=== PATIENT | male | born 1965 | race Caucasian/White ===

== ENCOUNTER 2022-06-10 07:46 | Outpatient (REF) | payer OTHER, SELFPAY ==
--- NOTE | ~2022-06-10 | XR_ITS ---
EXAMINATION: KNEE X-RAY CLINICAL INFORMATION: Pain COMPARISON: None TECHNIQUE: 3 views of both knees and lateral and sunrise view of the right knee FINDINGS: Right: Bone alignment is normal. No fracture or dislocation is seen. There is arthritis at the lateral femoral tibial and patellofemoral joints. There is a large joint effusion. There is evidence of atherosclerotic disease. Standing AP view of the left knee is unremarkable. XR/XR knee standing BI IMPRESSION: Right knee arthritis large joint effusion.
--- NOTE | ~2022-06-10 | XR_ITS ---
EXAMINATION: KNEE X-RAY CLINICAL INFORMATION: Pain COMPARISON: None TECHNIQUE: 3 views of both knees and lateral and sunrise view of the right knee FINDINGS: Right: Bone alignment is normal. No fracture or dislocation is seen. There is arthritis at the lateral femoral tibial and patellofemoral joints. There is a large joint effusion. There is evidence of atherosclerotic disease. Standing AP view of the left knee is unremarkable. XR/XR knee RT 2V IMPRESSION: Right knee arthritis large joint effusion.
== END 2022-06-10 07:47 | disposition home or self-care (01) ==
LOC: HO.HOSX 07:46
PROVIDERS: Visit Provider Physician Assistant
DX: M17.11 Unilateral primary osteoarthritis, right knee (principal)
CPT/HCPCS: 20610; 73560; 73565; 99202; J1040

== ENCOUNTER → 2022-07-15 09:43 | Outpatient (BNVA) | payer OTHER, SELFPAY | PROVIDERS: PCP Internal Medicine; Visit Provider Physician Assistant | DX: M17.11 Unilateral primary osteoarthritis, right knee (principal) | CPT/HCPCS: 99212 ==

== ENCOUNTER → 2022-08-01 12:45 | Outpatient (BNVA) | payer OTHER, SELFPAY | PROVIDERS: PCP Internal Medicine; Visit Provider Orthopaedic Surgery | DX: M17.11 Unilateral primary osteoarthritis, right knee (principal); M25.561 Pain in right knee; I10 Essential (primary) hypertension; E78.00 Pure hypercholesterolemia, unspecified; F17.210 Nicotine dependence, cigarettes, uncomplicated | CPT/HCPCS: 99212 ==

== ENCOUNTER 2022-10-19 13:37 | Outpatient (REF) | payer OTHER, SELFPAY ==
--- NOTE | 2022-10-19 14:25 | ECG_ITS ---
Test Reason : Z01.810 Pre Op Blood Pressure : / mmHG Vent. Rate : 079 BPM Atrial Rate : 079 BPM P-R Int : 150 ms QRS Dur : 084 ms QT Int : 362 ms P-R-T Axes : 059 061 040 degrees QTc Int : 415 ms Normal sinus rhythm Minimal voltage criteria for LVH, may be normal variant ( Sokolow-Mustafa ) Borderline ECG No previous ECGs available Referred By: Stephan Douglass Electronically Signed By:KATIE PATIÑO
[2022-10-19 14:30] LABS: MANUAL DIFF FLAG NO
[2022-10-19 14:58] LABS: Basophils Absolute Auto 0.1 X10*3/uL (0.0-0.2); Basophils Percent Auto 1.3 % (0-2); Eosinophils Absolute Auto 0.3 X10*3/uL (0.0-0.4); Eosinophils Percent Auto 4.1 % (0-4); Hematocrit 44.3 % (42.0-52.0); Imm Gran Abs Auto 0.02 X10*3/uL (0.00-0.03); Imm Gran Pct Auto 0.3 % (0.0-0.4); Lymphocytes Absolute Auto 2.1 X10*3/uL (1.2-4.9); Lymphocytes Percent Auto 31.5 % (20-40); Mean Corpuscular HGB Conc 33.9 g/dl (31.0-36.0); Mean Corpuscular Hemoglobin 30.3 pg (27.0-33.0); Mean Corpuscular Volume 89.5 fL (80.0-98.0); Mean Platelet Volume 10.3 fL (9.4-12.4); Monocytes Absolute Auto 0.6 X10*3/uL (0.1-1.2); Monocytes Percent Auto 8.9 % (2-11); Neutrophils Absolute Auto 3.6 x10*3/uL (2.0-8.3); Neutrophils Percent Auto 53.9 % (45-73); Platelet Count 196 X10*3/uL (160-400); Red Blood Count 4.95 X10*6/uL (4.60-5.80); Red Cell Distribution Width 12.7 % (11.0-16.0); White Blood Count 6.8 X10*3/uL (4.8-10.8)
[2022-10-19 15:20] LABS: Anion Gap 11 (12-20); Blood Urea Nitrogen 12 mg/dL (9-16); Calcium 9.6 mg/dL (8.4-10.2); Carbon Dioxide 26 mmol/L (22-29); Chloride 105 mmol/L (96-108); Estimated Glomerular Filt Rate > 60; Glucose Random 104 mg/dL (60-115); Potassium 4.5 mmol/L (3.3-5.1); Sodium 137 mmol/L (135-145)
== END 2022-10-19 13:38 | disposition home or self-care (01) ==
LOC: HO.LAB 13:37
PROVIDERS: PCP Internal Medicine; Visit Provider Orthopaedic Surgery
DX: Z01.818 Encounter for other preprocedural examination (principal)
CPT/HCPCS: 36415; 80048; 85025; 93005

== ENCOUNTER → 2022-11-17 15:26 | Outpatient (BNVA) | payer OTHER, SELFPAY | PROVIDERS: PCP Internal Medicine; Visit Provider Physician Assistant | DX: Z01.818 Encounter for other preprocedural examination (principal); M17.11 Unilateral primary osteoarthritis, right knee | CPT/HCPCS: 99212 ==

== ENCOUNTER 2022-11-22 09:58 | Inpatient (IN) | payer OTHER, SELFPAY ==
[2022-11-09 11:46] VITALS: BP 170/97; PULSE 83; RESP 20; O2SAT 98; BMI 25.5
--- NOTE | 2022-11-09 11:50 | P.CONAN_ITS ---
Documented by User: Radha Vu NP 11/09/22 12:01 HPI - Anesthesia Eval Consult details Narrative: 56yo M for Right Knee Replacement Total 11/22/22 PCP clearance pending 11/15/22 [facility] Active Problems Active Problems: All Active Problems (Updated 11/09/22 @ 11:45 by Diana Sanders RN) Osteoarthritis of right knee (Acute) Past Medical History Medical History High blood pressure High cholesterol Smoker Family History Family history of problems with anesthesia: No Surgical History Surgical History History of arthroscopy of right knee Hx of sinus surgery History of Problems with Anesthesia: No Social History Social History (Updated 11/17/22 @ 15:52 by Ted Portillo PA-C) Are you a primary pharmacy customer care specialist to a significant other at home: No Do you presently have visiting nurse or other home services: No Patient Tobacco Use Status: Former Tobacco user Tobacco use type: Cigarette Cigarettes Per Day: 0.5 Years Smoked: 20 Smoked in Last 30 Days: Yes Patient Interested in Nicotine Replacement: No Patient Given Instructions on How to Stop Smoking: Yes Date Education Initiated: 11/09/22 Second Hand Smoke Exposure: No Use of substances other than those prescribed or required for medical reasons: No Have you been hit, kicked, punched, or otherwise hurt by someone within the past year? 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 No SOB/CP within limits of knee (can climb 2 flights of stairs) Meds Allergies Allergy/AdvReac Type Severity Reaction Status Date / Time No Known Allergies Allergy Verified 11/17/22 15:44 Home Medications Medication Instructions Recorded Confirmed Last Taken Type bupropion HCl 150 mg tablet,12 hr 150 mg PO BID 06/10/22 11/08/22 Unknown History sustained-release losartan 50 mg tablet 50 mg PO DAILY 06/10/22 11/08/22 11/22/22 History rosuvastatin 40 mg tablet 40 mg PO DAILY 06/10/22 11/08/22 11/22/22 History amlodipine 10 mg tablet 10 mg PO DAILY 11/17/22 11/22/22 History Exam Exam Date and Time: November 09, 2022 1150 Pertinent Lab Results Pertinent Lab Results: Laboratory Tests 10/19/22 10/19/22 14:29 14:29 WBC 6.8 Hgb 15.0 Hct 44.3 Plt Count 196 Sodium 137 Potassium 4.5 Chloride 105 Carbon Dioxide 26 BUN 12 Creatinine 0.92 Narrative Narrative: EKG 10/2022 Vent. Rate : 079 BPM ? ? Atrial Rate : 079 BPM ?? P-R Int : 150 ms? QRS Dur : 084 ms ? ? QT Int : 362 ms ? ? ? P-R-T Axes : 059 061 040 degrees ?? QTc Int : 415 ms ? Normal sinus rhythm Minimal voltage criteria for LVH, may be normal variant ( Sokolow-Mustafa ) Borderline ECG No previous ECGs available Airway Mallampati Class: II TM Dist: >3cm Neck ROM: Full Partial: Upper Heart: RRR Lungs: CTAB Assessment and Plan Assessment Anesthesia Assessment: Anesthesia Plan Discussed, Smoking Cess. Discussed and PAT Visit Final Anesthetic Review Family History of Problems with Anesthesia: No History of Problems with Anesthesia: No Documented by User: Azam Lopes MD 11/22/22 15:11 [facility] Past Medical History Medical History High blood pressure High cholesterol Smoker Functional capacity: independent ambulation Surgical History Surgical History History of arthroscopy of right knee Hx of sinus surgery Social History Social History (Updated 11/17/22 @ 15:52 by Ted Portillo PA-C) Are you a primary pharmacy customer care specialist to a significant other at home: No Do you presently have visiting nurse or other home services: No Patient Tobacco Use Status: Former Tobacco user Tobacco use type: Cigarette Cigarettes Per Day: 0.5 Years Smoked: 20 Smoked in Last 30 Days: Yes Patient Interested in Nicotine Replacement: No Patient Given Instructions on How to Stop Smoking: Yes Date Education Initiated: 11/09/22 Second Hand Smoke Exposure: No Use of substances other than those prescribed or required for medical reasons: No Have you been hit, kicked, punched, or otherwise hurt by someone within the past year? 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 Meds Allergies Allergy/AdvReac Type Severity Reaction Status Date / Time No Known Allergies Allergy Verified 11/17/22 15:44 Home Medications Medication Instructions Recorded Confirmed Last Taken Type bupropion HCl 150 mg tablet,12 hr 150 mg PO BID 06/10/22 11/08/22 Unknown History sustained-release losartan 50 mg tablet 50 mg PO DAILY 06/10/22 11/08/22 11/22/22 History rosuvastatin 40 mg tablet 40 mg PO DAILY 06/10/22 11/08/22 11/22/22 History amlodipine 10 mg tablet 10 mg PO DAILY 11/17/22 11/22/22 History Exam Airway Mallampati Class: III Loose/Missing/Broken Teeth: Yes (Poor) Assessment and Plan Assessment Anesthesia Assessment: Chart Reviewed Final Anesthetic Review NPO: Yes ASA Class: II Final Preanesthetic Review: Meds/Allgs Chart Reviewed, Consent Obtained/Reviewed and Anes Risks/Benef Reviewed Patient Risk: Intermediate Procedure Risk: Intermediate Anesthetic Plan Anesthetic Plan: MAC: and Regional Block Disposition: Standard PACU
[2022-11-10 09:44] LABS: MRSA Nasal PCR NEGATIVE (Negative); SA Nasal PCR NEGATIVE (Negative)
[2022-11-22] VITALS (19 sets, daily range): BP systolic 94–145; BP diastolic 56–89; PULSE 62–93; RESP 14–20; TEMP 36.3–37.1; O2SAT 96–100
--- NOTE | ~2022-11-22 | US_ITS ---
EXAMINATION: US VENOUS ULTRASOUND WITH DOPPLER LOWER EXTREMITY, RIGHT CLINICAL INFORMATION: Edema status post total right knee arthroplasty. COMPARISON: None TECHNIQUE: Ultrasound of the deep veins is performed from the hip to the calf with compression sonography and color and pulse Doppler assessment. Spectral analysis with color-flow imaging is performed. FINDINGS: There is no evidence for deep venous thrombosis in the right common femoral, profunda femoral, proximal femoral, mid femoral, posterior tibial and peroneal veins. The right distal femoral and popliteal veins could not be interrogated secondary to overlying bandages. The left common femoral vein is patent. The popliteal fossa cannot be adequately interrogated. Mild subcutaneous edema in the right calf. US/US venous duplex LE RT IMPRESSION: 1. No evidence for deep venous thrombosis in the visualized veins of the right lower extremity as detailed above. 2. Mild subcutaneous edema in the right calf.
--- NOTE | ~2022-11-22 | XR_ITS ---
EXAMINATION: XR KNEE, RIGHT CLINICAL INFORMATION: Status post total right knee arthroplasty. COMPARISON: Right knee radiographs dated 06/10/2022. TECHNIQUE: Four views of the right knee. FINDINGS: The patient is status post right knee arthroplasty showing good anatomic alignment and no evidence for hardware malfunction. There is no acute fracture. Intra-articular and soft tissue air is noted. Multilevel surgical clips are seen anteriorly. XR/XR knee RT 2V IMPRESSION: Post surgical changes. No hardware abnormality.
[2022-11-22 10:15] LABS: Hematocrit 44.8 % (42.0-52.0); Hemoglobin 15.7 g/dl (14.0-18.0)
[2022-11-22 10:35] LABS: COVID-19 Test Negative (Negative); IDNOW Serial# 16C4AD1C
--- NOTE | 2022-11-22 10:54 | MHC.SHP ---
Pre-Procedural Eval Section A Date of Service: 11/22/22 The patient is an INPATIENT: No Changes since office visit: No Cold of Flu in the past 2 weeks, No New Medical Problems, No Changes in Medication and No Patient answered all questions The History & Physical has been completed within 30 days and I have reviewed it.: Yes Section B Chief Complaint: RT TKA Allergies: Allergies Allergy/AdvReac Type Severity Reaction Status Date / Time No Known Allergies Allergy Verified 11/17/22 15:44 Plan I have reviewed the history and physical and performed a pertinent physical examination on my patient. No changes have occurred unless specified. Time Spent With Patient Time: Total time managing care of this patient today ____ minutes.
--- NOTE | 2022-11-22 12:46 | PM.OP ---
Brief Operative Note Date of Service: 11/22/22 Pre-op diagnosis: Right knee OA Post-op diagnosis: same Procedure: Right TKA Implants: Strykler Triathlon press fit posterior stabilized 03/21/12s/38a Surgeon: Stephan Douglass MD Anesthesia: regional and spinal Was an Rivet Hammer Machine Operator used for this Procedure?: Yes Rivet Hammer Machine Operator: Ted Portillo Estimated blood loss (mL): 150 IV fluids (mL): 1,000 Pathology: other Condition: stable Disposition: PACU
--- NOTE | 2022-11-22 12:54 | P.OP_ITS ---
Operative Note Operative Note Date of Service: 11/22/22 Narrative: Date of Service: 11/22/22 Pre-op diagnosis: Right knee OA Post-op diagnosis: same Procedure: Right TKA Implants: Strykler Triathlon press fit posterior stabilized 03/21/12ps/38a Surgeon: Stephan Douglass MD Anesthesia: regional and spinal Was an Spooling Machine Operator used for this Procedure?: Yes Spooling Machine Operator: Ted Portillo Estimated blood loss (mL): 150 IV fluids (mL): 1,000 Pathology: other Condition: stable Disposition: PACU Procedure in detail: The patient was brought to the operating room and prepped and draped in standard sterile fashion. A time-out was called to identify proper site proper procedure proper surgeon and IV antibiotics were administered. 1 g of IV tranexamic acid was administered. I began by making a midline incision to the retinaculum and performed a medial parapatellar arthrotomy. The patella was translated laterally and the knee was flexed up. There was severe tricompartmental OA and he had a 25 deg flxion contracture. I performed a small medial peel and resected the infrapatellar fat pad. Goshen's line was then used to drill my intramedullary femoral guide and my distal femur cut of 14 mm was made in 5 degrees of valgus while protecting the soft tissues. I then measured a #6 femur and placed my cutting guide (in 3 deg ER) and made my anterior posterior and chamfer cuts protecting the soft tissues at all times. I then made my box but removing the PCL. Once I was satisfied with my cuts I turned my attention to the tibia. I removed the meniscus medially and laterally and , using an external cutting guide, in line with the tibial crest and the third ray, I made my distal tibial cut in 0 deg slope of while protecting the posterior soft tissues at all times. An extension block was used to confirm appropriate amount of bony resection. I then sized a #6 tibia and once I was satisfied that there was complete tibial coverage I placed my trial and with the trial femur in place took the knee through range of motion. I was satisfied with the extension and flexion as well as the stability. I was able to extyend him to 5 deg from terminal and 0 deg with a 9 mm insert was not balanced and so I compromised with a 12 mm insert. I then turned my attention to the patella where I removed 1 cm from the undersurface of the patella and then trialed a 38a patellar button. Again the knee was taken through range of motion I was satisfied with the tracking. I then returned to the femur and drilled my femoral lug holes and prepared the tibia. A femoral bone plug was placed and the knee was irrigated copiously. I then press fit the patella, tibia and femur in standard fashion. I trialed different inserts until I selected a #12 insert. The final insert was placed and a 3 minutes iodine soak with local TXA was performed. A Werewolf cautery wand was used to maintain hemostasis over the capsule and meniscal beds, the gutters and peripatellar soft tissues. The knee was then closed with a running Quill suture, a 3 0 Vicryl and júnior on the skin. Patient was then placed in sterile dressing and brought to recovery room in stable condition there were no known complications.
[2022-11-22] MEDS: Acetaminophen 1,000 MG/100 ML PIGGYBACK 400 MG IV (13:58)
[2022-11-22] MEDS: Lactated Ringers 1,000 ML 100 ML IVCONT (14:12)
[2022-11-22] MEDS: oxyCODONE HCl Immed Release 5 MG TABLET PO (14:36)
[2022-11-22] MEDS: HYDROmorphone HCl 0.5 MG/0.5 ML SYRINGE 0.25 MG IVPUSH ×3 (14:36→23:45)
--- NOTE | 2022-11-22 16:10 | MHC.CM.PN ---
Met with pt and dtr to discuss d/c planning needs: pt resides w/family and has no service or DME needs: works, drives, independent w/all care needs: pt has cell and contact family for transportation to home: HCP completed: copy in chart and given to pt: Mohan x 2. CM to follow for d/c planning changes.
[2022-11-22] MEDS: ceFAZolin Sodium/Dextrose,Iso 2 GM/50 ML PIGGYBACK IV (16:19)
[2022-11-22] MEDS: Acetaminophen 325 MG TABLET 650 MG PO (16:37)
[2022-11-22] MEDS: Celecoxib 200 MG CAPSULE PO (20:23)
[2022-11-22] MEDS: oxyCODONE HCl ER 10 MG TAB.ER.12H PO (20:23)
[2022-11-22] MEDS: Docusate Sodium 100 MG CAPSULE PO (20:23)
[2022-11-22] MEDS: 0.9 % Sodium Chloride Flush 3 ML SYRINGE IVFLUSH (20:24)
[2022-11-23] VITALS (8 sets, daily range): BP systolic 131–154; BP diastolic 79–86; PULSE 85–96; RESP 18; TEMP 36.6–37.5; O2SAT 95–99
[2022-11-23] MEDS: Lactated Ringers 1,000 ML 100 ML IVCONT ×3 (00:39→20:30)
[2022-11-23] MEDS: HYDROmorphone HCl 0.5 MG/0.5 ML SYRINGE 0.25 MG IVPUSH ×4 (05:22→17:54)
[2022-11-23 06:11] LABS: MANUAL DIFF FLAG NO
[2022-11-23 06:41] LABS: Anion Gap 16 (12-20); Blood Urea Nitrogen 13 mg/dL (9-16); Calcium 8.5 mg/dL (8.4-10.2); Carbon Dioxide 22 mmol/L (22-29); Chloride 101 mmol/L (96-108); Creatinine Clr Calc Pharmacy 107.6; Estimated Glomerular Filt Rate > 60; Glucose Fasting 144 mg/dL (60-99); Potassium 4.2 mmol/L (3.3-5.1); Sodium 135 mmol/L (135-145)
[2022-11-23 06:43] LABS: Basophils Absolute Auto 0.1 X10*3/uL (0.0-0.2); Basophils Percent Auto 0.6 % (0-2); Eosinophils Absolute Auto 0.1 X10*3/uL (0.0-0.4); Eosinophils Percent Auto 1.1 % (0-4); Hematocrit 37.2 % (42.0-52.0); Hemoglobin 12.9 g/dl (14.0-18.0); Imm Gran Abs Auto 0.03 X10*3/uL (0.00-0.03); Imm Gran Pct Auto 0.3 % (0.0-0.4); Lymphocytes Absolute Auto 1.4 X10*3/uL (1.2-4.9); Lymphocytes Percent Auto 14.7 % (20-40); Mean Corpuscular HGB Conc 34.7 g/dl (31.0-36.0); Mean Corpuscular Hemoglobin 30.8 pg (27.0-33.0); Mean Corpuscular Volume 88.8 fL (80.0-98.0); Mean Platelet Volume 10.7 fL (9.4-12.4); Monocytes Absolute Auto 1.3 X10*3/uL (0.1-1.2); Monocytes Percent Auto 13.5 % (2-11); Neutrophils Absolute Auto 6.8 x10*3/uL (2.0-8.3); Neutrophils Percent Auto 69.8 % (45-73); Platelet Count 173 X10*3/uL (160-400); Red Blood Count 4.19 X10*6/uL (4.60-5.80); Red Cell Distribution Width 12.7 % (11.0-16.0); White Blood Count 9.8 X10*3/uL (4.8-10.8)
--- NOTE | 2022-11-23 07:34 | PM.PNORT ---
Subjective Subjective Date of Service: 11/23/22 Interval history: POD1 s/p RTKA. No overnight events. Patient is resting in bed comfortably. Pain is managed. No additional complaints. Physical Exam Vital Signs: Vital Signs: Last Vital Signs Temp 98.1 F 11/23/22 07:31 Pulse 85 11/23/22 07:31 Resp 18 11/23/22 07:31 BP 131/83 11/23/22 07:31 Pulse Ox 98 11/23/22 07:31 O2 Del Method 11/23/22 07:31 BMI result Body Mass Index 25.5 Const: General: cooperative, healthy appearing and no acute distress Resp: Effort & Inspection: normal respiratory effort and able to speak in complete sentences Cardio: Rate: regular rate Peripheral pulses: Peripheral pulses 2+ throughout GI: Palpation (GI): Soft to palpation Skin: Lesions: no lesions Rashes: no rashes Extrem: Other: Right knee Aquacel is c/d/i. Able to dorsiflex and plantarflex. NVI. Procedures Date of Service Date of Service: 11/23/22 Progress Note: A&P Assessment and plan (1) Status post total right knee replacement: Status: Acute Plan Continue pain mgmnt Begin ASA for dvt ppx begin PT for RTKA Dispo planning-Pending PT eval, pain mgmnt Time Spent With Patient Time: Total time managing care of this patient today ____ minutes. Quality Stroke Does the patient have a stroke diagnosis?: No VTE Prior VTE?: No VTE Risk Level:: Medical - moderate - high VTE Device Contraindication: N/A - Device Ordered VTE Drug Contraindication: N/A - Med Ordered
--- NOTE | 2022-11-23 08:09 | P.PNOP_ITS ---
Subjective Subjective Date of Service: 11/23/22 Interval history: POD 1 s/p RT TKA No overnight events Has some pain that is tolerable denies cp, sob, palpitations. Physical Exam Vital Signs: Vital Signs: Last Vital Signs Temp 98.1 F 11/23/22 07:31 Pulse 85 11/23/22 07:31 Resp 18 11/23/22 07:31 BP 131/83 11/23/22 07:31 Pulse Ox 98 11/23/22 07:31 O2 Del Method 11/23/22 07:31 BMI result Body Mass Index 25.5 Const: General: cooperative, healthy appearing and no acute distress Resp: Effort & Inspection: normal respiratory effort and able to speak in complete sentences Cardio: Rate: regular rate Peripheral pulses: Peripheral pulses 2+ throughout GI: Palpation (GI): Soft to palpation Skin: General skin exam: no rashes or lesions noted Extrem: Other: incision clean dry and intact. Minoo intact. No erythema or joint effusion. Calf supple nontender. Neurovascularly intact. Procedures Date of Service Date of Service: 11/23/22 Progress Note: A&P Assessment and plan (1) Status post total right knee replacement: Status: Acute Assessment and Plan: * Continue pain mgmnt * Begin Aspirin for dvt ppx * begin PT for Rt TKA * Dispo planning-Pending PT eval, pain mgmnt Time Spent With Patient Time: Total time managing care of this patient today ____ minutes. Quality Stroke Does the patient have a stroke diagnosis?: No VTE Prior VTE?: No VTE Risk Level:: Medical - moderate - high VTE Device Contraindication: N/A - Device Ordered VTE Drug Contraindication: N/A - Med Ordered
[2022-11-23] MEDS: buPROPion HCl XL 300 MG TAB.ER.24H PO (08:10)
[2022-11-23] MEDS: Docusate Sodium 100 MG CAPSULE PO ×2 (08:10→20:29)
[2022-11-23] MEDS: Celecoxib 200 MG CAPSULE PO ×2 (08:10→20:28)
[2022-11-23] MEDS: oxyCODONE HCl ER 10 MG TAB.ER.12H PO ×2 (08:11→20:28)
[2022-11-23] MEDS: Aspirin 325 MG TABLET PO ×2 (11:45→20:28)
[2022-11-23] MEDS: oxyCODONE HCl Immed Release 5 MG TABLET PO (11:45)
--- NOTE | 2022-11-23 14:43 | HO.POSTANES ---
Post Anesthesia Evaluation Post Anesthesia Evaluation Vital Signs: Vital Signs Temp Pulse Resp BP Pulse Ox O2 Del Method 11/23/22 11:34 97.9 F 90 18 141/86 H 99 Room Air 11/23/22 07:31 98.1 F 85 18 131/83 98 Room Air 11/23/22 06:08 18 11/23/22 03:53 98.4 F 86 18 148/82 H 98 Room Air Anesthesia: Spinal and Nerve Block Mental Status: Awake Pain Control: Satisfactory Nausea/Vomiting: None Hydration: Adequate Anesthesia-Related Issues: No Anes. Related Issues
[2022-11-24] VITALS: BP 145/62; PULSE 125; RESP 17; TEMP 36.9; O2SAT 97
[2022-11-24 03:24] VITALS: BP 154/66; PULSE 92; RESP 18; TEMP 36.5; O2SAT 97
[2022-11-24] MEDS: Lactated Ringers 1,000 ML 100 ML IVCONT (05:39)
[2022-11-24 06:40] LABS: MANUAL DIFF FLAG NO
[2022-11-24 06:58] LABS: Basophils Absolute Auto 0.1 X10*3/uL (0.0-0.2); Basophils Percent Auto 0.8 % (0-2); Eosinophils Absolute Auto 0.1 X10*3/uL (0.0-0.4); Eosinophils Percent Auto 1.2 % (0-4); Hematocrit 30.5 % (42.0-52.0); Hemoglobin 10.7 g/dl (14.0-18.0); Imm Gran Abs Auto 0.03 X10*3/uL (0.00-0.03); Imm Gran Pct Auto 0.4 % (0.0-0.4); Lymphocytes Absolute Auto 1.3 X10*3/uL (1.2-4.9); Lymphocytes Percent Auto 14.7 % (20-40); Mean Corpuscular HGB Conc 35.1 g/dl (31.0-36.0); Mean Corpuscular Hemoglobin 30.7 pg (27.0-33.0); Mean Corpuscular Volume 87.6 fL (80.0-98.0); Monocytes Absolute Auto 1.1 X10*3/uL (0.1-1.2); Monocytes Percent Auto 12.7 % (2-11); Neutrophils Percent Auto 70.2 % (45-73); Platelet Count 143 X10*3/uL (160-400); Red Blood Count 3.48 X10*6/uL (4.60-5.80); Red Cell Distribution Width 12.5 % (11.0-16.0); White Blood Count 8.5 X10*3/uL (4.8-10.8)
[2022-11-24 07:24] LABS: Anion Gap 14 (12-20); Blood Urea Nitrogen 10 mg/dL (9-16); Carbon Dioxide 21 mmol/L (22-29); Chloride 106 mmol/L (96-108); Creatinine Clr Calc Pharmacy 124.8; Estimated Glomerular Filt Rate > 60; Glucose Fasting 108 mg/dL (60-99); Potassium 4.1 mmol/L (3.3-5.1); Sodium 137 mmol/L (135-145)
[2022-11-24 07:44] VITALS: BP 128/68; PULSE 98; RESP 18; TEMP 37.3; O2SAT 97
[2022-11-24] MEDS: Celecoxib 200 MG CAPSULE PO (07:48)
[2022-11-24] MEDS: Aspirin 325 MG TABLET PO (07:48)
[2022-11-24] MEDS: Atorvastatin Calcium 80 MG TABLET PO (07:48)
[2022-11-24] MEDS: Docusate Sodium 100 MG CAPSULE PO (07:48)
[2022-11-24] MEDS: buPROPion HCl XL 300 MG TAB.ER.24H PO (07:48)
[2022-11-24] MEDS: oxyCODONE HCl ER 10 MG TAB.ER.12H PO (07:48)
[2022-11-24] MEDS: Losartan Potassium 50 MG TABLET PO (07:49)
--- NOTE | 2022-11-24 08:45 | P.DS_ITS ---
DS: Providers Provider Date of Service: 11/24/22 Date of admission: 11/22/22 09:58 Primary care physician: Paulino Christine MD DS: Diagnosis Discharge Diagnosis (1) Status post total right knee replacement: Status: Acute DS: Summary Hospital Course Hospital Course: The patient underwent a successful right total knee arthroplasty, they were transferred to PACU and then to the floor to recover. During their stay, their vitals were stable, afebrile at 99.2. Labs were unremarkable, H/H 10.7/30.5. POD 1 they were started on Aspirin 325mg po bid for DVT ppx, they also received Physical Therapy services twice a day. Prior to discharge, their dressing was changed, incision clean dry and intact, new Aquacel dressing applied and the plan was to be discharged home with VNA services. Time Spent with Patient Time attestation: Total time managing care of this patient today ____ minutes. Discharge coordination time: Less than 30 minutes Quality: Safe Use of Opioids Does Pt have an Active Cancer Diagnosis on the Problem List?: No Quality: Stroke Does the patient have a stroke diagnosis?: No Physical Exam Vital Signs: Vital Signs: Last Vital Signs Temp 99.2 F 11/24/22 07:44 Pulse 98 11/24/22 07:44 Resp 18 11/24/22 07:44 BP 128/68 11/24/22 07:44 Pulse Ox 97 11/24/22 07:44 O2 Del Method 11/24/22 07:44 BMI result Body Mass Index 25.5 Const: General: cooperative, healthy appearing and no acute distress Resp: Effort & Inspection: normal respiratory effort and able to speak in complete sentences Cardio: Rate: regular rate Peripheral pulses: Peripheral pulses 2+ throughout GI: Palpation (GI): Soft to palpation Skin: Lesions: no lesions Rashes: no rashes Extrem: Other: Right knee júnior intact. No erythema o drainage. Able to flex and extend at the knee. Able to dorsiflex and plantarflex. NVI. DS: Data Data Completed and Pending Pending studies at discharge: Pending at discharge 11/22/22 12:40 Surgical [PTH] Routine Labs on day of discharge: Laboratory Results - last 24 hr 11/24/22 11/24/22 05:26 05:26 WBC 8.5 RBC 3.48 L Hgb 10.7 L Hct 30.5 L MCV 87.6 MCH 30.7 MCHC 35.1 RDW 12.5 Plt Count 143 L MPV 11.0 Immature Gran % (Auto) 0.4 Neut % (Auto) 70.2 Lymph % (Auto) 14.7 L Ritchie % (Auto) 12.7 H Eos % (Auto) 1.2 Baso % (Auto) 0.8 Lymph # (Auto) 1.3 Ritchie # (Auto) 1.1 Eos # (Auto) 0.1 Baso # (Auto) 0.1 Abs Immat Gran (auto) 0.03 Absolute Neuts (auto) 6.0 Absolute Nucleated RBC 0.000 Nucleated RBC % (auto) 0.0 Sodium 137 Potassium 4.1 Chloride 106 Carbon Dioxide 21 L Anion Gap 14 BUN 10 Creatinine 0.75 Estim Creat Clear Calc 124.8 Estimated GFR > 60 Fasting Glucose 108 H Calcium 8.0 L Discharge Plan Discharge Anticipated Discharge Date/Time: 11/24/22 12:00 Patient Disposition: Home Health Service Discharge Diagnosis: rt tka Referrals: Keisha Henriquez PA-C [Physician Thread Milling Machine Set Up Operator] - 2 Weeks (12/08/22 2:00 [facility] Keisha Henriquez PA-C) Discharge Medications: New celecoxib 200 mg Capsule 200 mg PO BID 30 Days Qty: 60 0RF acetaminophen 325 mg Tablet 650 mg PO Q6H PRN (Reason: Pain, Mild (Pain Scale 1-3)) 30 Days Qty: 240 0RF aspirin 325 mg Tablet 325 mg PO BID 42 Days Qty: 84 0RF docusate sodium 100 mg Capsule 100 mg PO BID 14 Days Qty: 28 0RF oxycodone 5 mg Tablet 5 mg PO Q4H PRN (Reason: Pain, Moderate (Pain Scale 4-6) 7 Days Qty: 42 0RF Rx Instructions: Partial Fill upon patient request. Continued amlodipine 10 mg tablet 10 mg PO DAILY rosuvastatin 40 mg tablet 40 mg PO DAILY losartan 50 mg tablet 50 mg PO DAILY bupropion HCl 150 mg tablet sustained-release 12 hr 150 mg PO BID Discharge Orders: Discharge Order (Routine); Ordered 11/24/22 Ordered By: Keisha Henriquez Diet: Regular diet Activity on Discharge: Use cane or walker Stand Alone Forms: Patient Portal Discharge page Care Plan Goals: Restore function of joint Health Concerns: none Plan of Treatment: Physical Therapy Pain management DVT prophylaxis Assessment: Physical Therapy for Total knee arthroplasty: WBAT, gait training, ROM 0-12, quad strength * Limit stair climbing * No showering, no tub bath-keep dressing clean, dry and intact * No driving x6 weeks * Continue Aspirin twice a day x 6 weeks * Follow up with [facility] in 2 weeks: 12/08/22 @ 2:00pm [facility] Orthopedic SurgeonsKeisha Henriquez PA-C * --you will also have your first out patient PT eval on the day of your post op appt-so please plan on being in the office that day for an extended period of time.
--- NOTE | 2022-11-24 08:47 | P.F2F_ITS ---
Service Date Service Date: 11/24/22 Encounter Date of encounter: 11/24/22 Reasons for Services Signs and symptoms assessed: Pt. is considered homebound due to recent surgery. Unable to drive, poor balance, poor gait mechanics s/p RTKA. Reason for physical therapy: home safety and mobility, therapeutic exercises, restore joint function, gait/transfer training, assess need for DME and ADL training Homebound: Leaving the home is medically contraindicated at this time without the asist of a device and/or another person due th the listed conditions above and below. Reason homebound: unsteady gait / fall risk, leg weakness, pain with ambulation, pain with transfers, poor balance / fall risk and unable to drive Homebound supporting statement: Pt. is considered homebound due to recent surgery. Unable to drive, poor balance, poor gait mechanics. Certification: Based on the above findings, I certify that this patient is confined to the home and needs intermittent nursing home care, physical therapy and/or speech therapy, or continues to need occupational therapy. The patient is under my care, and I have initiated the establishment of the plan of care. The patient will be followed by a physician who will periodically review the plan of care. Time Spent With Patient Time: Total time managing care of this patient today ____ minutes.
--- NOTE | 2022-11-24 08:51 | MHC.CM.PN ---
Addendum entered by Hanh Travis 11/24/22 11:31: PT WILL DC WITH A RX FOR A WALKER HE IS AWARE HE WILL NEED TO GO TO A MEDICAL SUPPLY STORE TO FILL RX HE REPORTS HE DOES HAVE ONE AT HOME, HOWEVER IT WAS NOT ORIGINALLY HIS AND IS TOO SHORT Addendum entered by Hanh Travis 11/24/22 09:15: [facility] BLANK ACCEPTING Original Note: PT CLEARED TO DC HOME TODAY WITH PHYSICAL THERAPY REFERRAL MADE TO [facility] AWAITING RESPONSE
[2022-11-24] MEDS: oxyCODONE HCl Immed Release 5 MG TABLET PO (13:51)
== END 2022-11-24 14:12 | disposition home health service (06) | DRG 326 ==
LOC: HO.SSSA 10:03 → HO.S3 14:21
PROVIDERS: Physician Assistant; Admitting Provider Orthopaedic Surgery; PCP Internal Medicine; Visit Provider Orthopaedic Surgery
PROC: 0SRC0JA Replacement of Right Knee Joint with Synthetic Substitute, Uncemented, Open Approach (ICD-10-PCS; CPT 27447; principal; 2022-11-22 11:50)
DX: M17.11 Unilateral primary osteoarthritis, right knee (principal); E78.00 Pure hypercholesterolemia, unspecified; I10 Essential (primary) hypertension; G89.18 Other acute postprocedural pain; Z20.822 Contact with and (suspected) exposure to COVID-19; Z87.891 Personal history of nicotine dependence; Z79.899 Other long term (current) drug therapy
CPT/HCPCS: 36415; 73560; 80048; 85014; 85018; 85025; 86850; 86900; 86901; 87635; 87640; 87641; 88305; 88311; 93971; 97110; 97116; 97162; C1776; J0131; J0690; J1170; J2250; J2370; J2795; J3010

== ENCOUNTER 2022-11-25 14:57 | Outpatient (REF) | payer OTHER, SELFPAY ==
[2022-11-25 16:40] LABS: MANUAL DIFF FLAG NO
[2022-11-25 16:44] LABS: Basophils Absolute Auto 0.1 X10*3/uL (0.0-0.2); Basophils Percent Auto 0.7 % (0-2); Eosinophils Absolute Auto 0.2 X10*3/uL (0.0-0.4); Eosinophils Percent Auto 2.1 % (0-4); Hematocrit 28.6 % (42.0-52.0); Hemoglobin 10.1 g/dl (14.0-18.0); Imm Gran Abs Auto 0.02 X10*3/uL (0.00-0.03); Imm Gran Pct Auto 0.2 % (0.0-0.4); Lymphocytes Absolute Auto 1.3 X10*3/uL (1.2-4.9); Lymphocytes Percent Auto 14.8 % (20-40); Mean Corpuscular HGB Conc 35.3 g/dl (31.0-36.0); Mean Corpuscular Hemoglobin 31.4 pg (27.0-33.0); Mean Corpuscular Volume 88.8 fL (80.0-98.0); Mean Platelet Volume 11.2 fL (9.4-12.4); Monocytes Absolute Auto 0.7 X10*3/uL (0.1-1.2); Monocytes Percent Auto 8.5 % (2-11); Neutrophils Absolute Auto 6.3 x10*3/uL (2.0-8.3); Neutrophils Percent Auto 73.7 % (45-73); Platelet Count 166 X10*3/uL (160-400); Red Blood Count 3.22 X10*6/uL (4.60-5.80); Red Cell Distribution Width 12.5 % (11.0-16.0); White Blood Count 8.5 X10*3/uL (4.8-10.8)
== END 2022-11-25 14:58 | disposition home or self-care (01) ==
LOC: HO.HMGCLNP 14:57
PROVIDERS: Visit Provider Internal Medicine
DX: L03.90 Cellulitis, unspecified (principal)
CPT/HCPCS: 85025

== ENCOUNTER → 2022-11-28 10:48 | Outpatient (BNVA) | payer OTHER, SELFPAY | PROVIDERS: PCP Internal Medicine; Visit Provider Physician Assistant | DX: Z13.89 Encounter for screening for other disorder (principal) ==

== ENCOUNTER → 2022-12-01 14:37 | Outpatient (BNVA) | payer OTHER, SELFPAY | PROVIDERS: PCP Internal Medicine; Visit Provider Physician Assistant | DX: Z13.89 Encounter for screening for other disorder (principal) ==

== ENCOUNTER 2022-12-08 08:39 | Outpatient (RCR) | payer OTHER, SELFPAY | END 2023-04-20 13:20 | disposition home or self-care (01) | LOC: HO.PT 08:39 | PROVIDERS: Visit Provider Physician Assistant | DX: Z96.651 Presence of right artificial knee joint (principal) ==

== ENCOUNTER → 2022-12-08 13:49 | Outpatient (BNVA) | payer OTHER, SELFPAY | PROVIDERS: PCP Internal Medicine; Visit Provider Physician Assistant | DX: Z13.89 Encounter for screening for other disorder (principal) ==

== ENCOUNTER → 2022-12-12 12:49 | Outpatient (BNVA) | payer OTHER, SELFPAY | PROVIDERS: PCP Internal Medicine; Visit Provider Orthopaedic Surgery | DX: Z13.89 Encounter for screening for other disorder (principal) ==

== ENCOUNTER → 2022-12-26 12:48 | Outpatient (BNVA) | payer OTHER, SELFPAY | PROVIDERS: PCP Internal Medicine; Visit Provider Orthopaedic Surgery | DX: Z47.1 Aftercare following joint replacement surgery (principal); Z96.651 Presence of right artificial knee joint | CPT/HCPCS: 99212 ==

== ENCOUNTER 2023-02-06 08:31 | Outpatient (REF) | payer OTHER, SELFPAY ==
--- NOTE | ~2023-02-06 | XR_ITS ---
EXAMINATION: XR knee standing BI, XR knee RT 2V CLINICAL INFORMATION: Reason for Exam M25.569 - Pain in unspecified knee COMPARISON: 11/22/2022 TECHNIQUE: Standing views of the bilateral knees and 2 views of the right knee joint XR/XR knee standing BI FINDINGS/IMPRESSION: * Status post right total knee arthroplasty without evidence of hardware complication. Large suprapatellar effusion, likely postoperative.
--- NOTE | ~2023-02-06 | XR_ITS ---
EXAMINATION: XR knee standing BI, XR knee RT 2V CLINICAL INFORMATION: Reason for Exam M25.569 - Pain in unspecified knee COMPARISON: 11/22/2022 TECHNIQUE: Standing views of the bilateral knees and 2 views of the right knee joint XR/XR knee RT 2V FINDINGS/IMPRESSION: * Status post right total knee arthroplasty without evidence of hardware complication. Large suprapatellar effusion, likely postoperative.
== END 2023-02-06 08:32 | disposition home or self-care (01) ==
LOC: HO.HOSX 08:31
PROVIDERS: Visit Provider Orthopaedic Surgery
DX: Z47.1 Aftercare following joint replacement surgery (principal); Z96.651 Presence of right artificial knee joint
CPT/HCPCS: 73560; 73565; 99212

== ENCOUNTER 2023-05-26 06:11 | Day surgery (SDC) | payer OTHER, SELFPAY ==
--- NOTE | 2023-05-25 12:01 | HO.ANESPROP2 ---
HPI - Anesthesia Eval Consult details Narrative: 57yo M for Colonoscopy s/p TKR 11/2022 [facility] Active Problems Active Problems: All Active Problems (Updated 11/09/22 @ 11:45 by Diana Sanders RN) Osteoarthritis of right knee (Acute) Status post total right knee replacement (Acute) Past Medical History Medical History High blood pressure High cholesterol Smoker Family History Family history of problems with anesthesia: No Surgical History Surgical History (Updated 05/25/23 @ 10:23 by Lianne Saldaña RN) History of arthroscopy of right knee History of total right knee replacement Hx of sinus surgery History of Problems with Anesthesia: No Social History Social History Household Members: Family Are you a primary healthcare administrator to a significant other at home: No Do you presently have visiting nurse or other home services: No Patient Tobacco Use Status: Former Tobacco user Tobacco use type: Cigarette Cigarettes Per Day: 0.5 Years Smoked: 20 Second Hand Smoke Exposure: No service: No Current occupational status: employed 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 Rate : 079 BPM ? ? Atrial Rate : 079 BPM ?? P-R Int : 150 ms? QRS Dur : 084 ms ? ? QT Int : 362 ms ? ? ? P-R-T Axes : 059 061 040 degrees ?? QTc Int : 415 ms ? Normal sinus rhythm Minimal voltage criteria for LVH, may be normal variant ( Sokolow-Mustafa ) Borderline ECG No previous ECGs available Assessment and Plan Assessment Anesthesia Assessment: Chart Reviewed Final Anesthetic Review Family History of Problems with Anesthesia: No History of Problems with Anesthesia: No
[2023-05-26 06:30] VITALS: BMI 25.0
[2023-05-26] MEDS: Lactated Ringers 1,000 ML 100 ML IVCONT (06:51)
[2023-05-26] MEDS: Gentamicin Sulfate/NaCl 80 MG/100 ML PIGGYBACK 100 MG IV (06:52)
[2023-05-26 06:53] VITALS: BP 142/87; PULSE 79; RESP 15; TEMP 36.6; O2SAT 98
--- NOTE | 2023-05-26 07:18 | P.CONAN_ITS ---
[facility] Active Problems Active Problems: All Active Problems (Updated 11/09/22 @ 11:45 by Diana Sanders RN) Osteoarthritis of right knee (Acute) Status post total right knee replacement (Acute) Past Medical History Medical History High blood pressure High cholesterol Smoker Family History Family history of problems with anesthesia: No Surgical History Surgical History History of arthroscopy of right knee History of total right knee replacement Hx of sinus surgery History of Problems with Anesthesia: No Social History Social History Household Members: Family Are you a primary certified caregiver to a significant other at home: No Do you presently have visiting nurse or other home services: No Patient Tobacco Use Status: Current everyday Tobacco user Tobacco use type: Cigarette Cigarettes Per Day: 20 Years Smoked: 20 Second Hand Smoke Exposure: No Use of substances other than those prescribed or required for medical reasons: No Are you DNR?: No Advance Directives: No Advance Directives Information Provided: Yes service: No Current occupational status: employed 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 Meds Allergies Allergy/AdvReac Type Severity Reaction Status Date / Time No Known Allergies Allergy Verified 12/26/22 12:52 Active Medications: Current Medications Albuterol Sulfate (Albuterol Sulfate (0.083%) 2.5 Mg/3 Ml Vial.Neb) 2.5 mg INHALE ONCE PRN PRN Reason: Shortness of Breath/Wheezing Lactated Ringer's (Lr) 1,000 mls @ 100 mls/hr IVCONT .Q10H MARRY Last Admin: 05/26/23 06:51 Dose: 100 mls/hr Ampicillin Sodium 2 gm/ Sodium (Chloride) 100 mls @ 100 mls/hr IV PREOP ONE Stop: 05/26/23 07:25 Gentamicin Sulfate/Sodium Chloride (Garamycin) 80 mg in 100 mls @ 100 mls/hr IV PREOP ONE Stop: 05/26/23 07:25 Last Admin: 05/26/23 06:52 Dose: 100 mls/hr Sodium Biphosphate/Sodium Phosphate (Sodium Phosphate,Chelan-Dibasic 133 Ml Enema) 133 ml [place] ONCE PRN PRN Reason: Poor Colonoscopy Prep Results Home Medications Medication Instructions Recorded Confirmed Last Taken Type losartan 50 mg tablet 50 mg PO DAILY 06/10/22 05/26/23 11/22/22 History rosuvastatin 40 mg tablet 40 mg PO DAILY 06/10/22 05/26/23 11/22/22 History amlodipine 10 mg tablet 10 mg PO DAILY 11/17/22 05/26/23 11/22/22 History Exam Exam Date and Time: May 26, 2023 0718 Height,Weight and Vital Signs: Height 6 ft 2 in Weight 88.451 kg Last Vital Signs Temp 97.8 F 05/26/23 06:53 Pulse 79 05/26/23 06:53 Resp 15 05/26/23 06:53 BP 142/87 H 05/26/23 06:53 Pulse Ox 98 05/26/23 06:53 O2 Del Method Room Air 05/26/23 06:53 Airway Mallampati Class: II TM Dist: >3cm Partial: Upper Heart: rrr Lungs: clear Assessment and Plan Final Anesthetic Review Family History of Problems with Anesthesia: No History of Problems with Anesthesia: No ASA Class: II Final Preanesthetic Review: No Changes in Pt Med Stat, Meds/Allgs Chart Reviewed, Consent Obtained/Reviewed and Anes Risks/Benef Reviewed Patient Risk: Intermediate Procedure Risk: Low Anesthetic Plan Anesthetic Plan: MAC: Disposition: Standard PACU
[2023-05-26] MEDS: Ampicillin Sodium 2 GM in 0.9 % Sodium Chloride 100 ML IV (07:35)
[2023-05-26 08:31] VITALS: BP 142/85; PULSE 70; RESP 18; TEMP 36; O2SAT 99
--- NOTE | 2023-05-26 08:32 | PM.OP ---
Brief Operative Note Date of Service: 05/26/23 Pre-op diagnosis: Screening Post-op diagnosis: other (Diverticulosis) Procedure: Colonoscopy to the cecum and TI Surgeon: Chintan Medel Anesthesia: MAC Was an Remote Inpatient Coder used for this Procedure?: No Estimated blood loss (mL): 0 Pathology: none sent Condition: stable Disposition: PACU
[2023-05-26 08:46] VITALS: BP 142/85; PULSE 66; RESP 20; TEMP 36.2; O2SAT 100
--- NOTE | 2023-05-26 09:05 | OP_ITS ---
DATE OF SERVICE: 05/26/2023 SURGEON: Chintan Medel MD INDICATIONS: The patient presents for evaluation of colorectal cancer screening. Full consent has been obtained from him for this, including risks of bleeding and perforation. PREOPERATIVE DIAGNOSIS: Colorectal cancer screening. POSTOPERATIVE DIAGNOSIS: PROCEDURE PERFORMED: Colonoscopy to the cecum and terminal ileum. ESTIMATED BLOOD LOSS: COMPLICATIONS: ANESTHESIA: Monitored anesthesia care. ASSISTANTS: SPECIMENS: POSTOPERATIVE DIAGNOSES: Colorectal cancer screening, mild sigmoid diverticulosis, small internal hemorrhoids. DESCRIPTION OF PROCEDURE: The patient was placed in the left lateral decubitus position. The digital rectal exam revealed no abnormalities. The Olympus video pediatric colonoscope was entered into the rectum and advanced easily to the cecum. Once in the cecum, I did identify normal-appearing cecal pouch with appendiceal orifice and a normal-appearing ileocecal valve. The terminal ileum was cannulated and appeared normal. The scope was withdrawn back in the colon. The entire cecum and ileocecal valve appeared normal. The scope was slowly withdrawn assessing all mucosal surfaces carefully. Preparation was excellent. I did not visualize any sign of polyps, colitis, nor angiodysplasia. There was a mild amount of sigmoid diverticulosis. In the rectum, scope was retroflexed visualizing minimal internal hemorrhoids but no other pathology. The rectal mucosa appeared normal. The scope was straightened and withdrawn from the patient. He tolerated the procedure well and was returned to the recovery area in stable condition. IMPRESSION: 1. Mild sigmoid diverticulosis. 2. Minimal internal hemorrhoids. PLAN: Given today's negative exam and negative family history of colon cancer, I would recommend a followup colonoscopy in 10 years for further screening. He will otherwise see me on a p.r.n. basis. This has been discussed with his daughter. MD ИРИНА Phipps/YOANA / [phone]
== END 2023-05-26 09:12 | disposition home or self-care (01) ==
PROVIDERS: PCP Internal Medicine; Visit Provider Internal Medicine
PROC: 0DJD8ZZ Inspection of Lower Intestinal Tract, Via Natural or Artificial Opening Endoscopic (ICD-10-PCS; CPT 45378; principal; 2023-05-26 07:30)
DX: Z12.11 Encounter for screening for malignant neoplasm of colon (principal); K57.30 Diverticulosis of large intestine without perforation or abscess without bleeding; K64.8 Other hemorrhoids; I10 Essential (primary) hypertension; E78.00 Pure hypercholesterolemia, unspecified; Z79.899 Other long term (current) drug therapy; F17.210 Nicotine dependence, cigarettes, uncomplicated
CPT/HCPCS: 45378; J0290; J1580